=== PATIENT | female | born 1955 | race Caucasian/White ===

== ENCOUNTER → 2016-04-18 | Outpatient (CLI) | payer BC ==
--- NOTE | 2016-04-19 09:37 | MM ---
Reason for exam: screening (asymptomatic). Last mammogram was performed 1 year ago. History: Patient is postmenopausal. Family history of breast cancer in paternal aunt. Benign US LT VAD breast biopsy of the left breast, February 16, 2011. Benign left breast aspiration of the left breast, February 16, 2011. Physical Findings: A clinical breast exam by your physician is recommended on an annual basis and results should be correlated with mammographic findings. MG Screening Mammo w CAD Bilateral CC and MLO view(s) were taken. Prior study comparison: April 05, 2015, bilateral MG screening mammo w CAD. August 13, 2013, right breast MG diagnostic mammo RT w CAD. The breast tissue is heterogeneously dense. This may lower the sensitivity of mammography. Previous mammotome biopsy in the left breast. There is chronic nodularity bilaterally. No significant changes when compared with prior studies. ASSESSMENT: Benign, BI-RAD 2 RECOMMENDATION: Routine screening mammogram of both breasts in 1 year.
== END | disposition home or self-care (01) ==
LOC: RADMAMWWP 07:39
PROVIDERS: ATTEND Family Medicine
DX: Z12.31 Encounter for screening mammogram for malignant neoplasm of breast (principal)

== ENCOUNTER → 2017-05-30 | Outpatient (CLI) | payer BC ==
--- NOTE | 2017-05-31 11:04 | MM ---
Reason for exam: screening (asymptomatic). Last mammogram was performed 1 year and 1 month ago. History: Patient is postmenopausal. Family history of breast cancer in paternal aunt. Benign US LT VAD breast biopsy of the left breast, February 16, 2011. Benign left breast aspiration of the left breast, February 16, 2011. Physical Findings: A clinical breast exam by your physician is recommended on an annual basis and results should be correlated with mammographic findings. MG Screening Mammo w CAD Bilateral CC and MLO view(s) were taken. Prior study comparison: April 18, 2016, bilateral MG screening mammo w CAD. April 05, 2015, bilateral MG screening mammo w CAD. The breast tissue is heterogeneously dense. This may lower the sensitivity of mammography. Finding: There are typically benign multiple round oval circumscribed masses in both breasts most compatible with waxing and waning cysts mammographically. No suspicious abnormality. Left biopsy marker noted. ASSESSMENT: Benign, BI-RAD 2 RECOMMENDATION: Routine screening mammogram of both breasts in 1 year.
== END | disposition home or self-care (01) ==
LOC: RADMAMWWP 15:17
PROVIDERS: ATTEND Family Medicine
DX: Z12.31 Encounter for screening mammogram for malignant neoplasm of breast (principal)
CPT/HCPCS: 77067

== ENCOUNTER → 2018-06-11 | Outpatient (CLI) | payer BC ==
--- NOTE | 2018-06-12 10:57 | MM ---
Reason for exam: screening (asymptomatic). Last mammogram was performed 1 year ago. History: Patient is postmenopausal. Family history of breast cancer in paternal aunt. Benign US LT VAD breast biopsy of the left breast, February 16, 2011. Benign left breast aspiration of the left breast, February 16, 2011. Physical Findings: A clinical breast exam by your physician is recommended on an annual basis and results should be correlated with mammographic findings. MG Screening Mammo w CAD Bilateral CC and MLO view(s) were taken. Prior study comparison: May 30, 2017, bilateral MG screening mammo w CAD. April 18, 2016, bilateral MG screening mammo w CAD. The breast tissue is heterogeneously dense. This may lower the sensitivity of mammography. There are benign appearing round oval circumscribed masses waxing and waning over time most mammographically compatible with cysts. Bilateral biopsy markers. ASSESSMENT: Benign, BI-RAD 2 RECOMMENDATION: Routine screening mammogram of both breasts in 1 year.
== END ==
LOC: RADMAMWWP 11:01
PROVIDERS: ATTEND Family Medicine
DX: Z12.31 Encounter for screening mammogram for malignant neoplasm of breast (principal)
CPT/HCPCS: 77067

== ENCOUNTER → 2019-10-15 | Outpatient (CLI) | payer BC ==
--- NOTE | 2019-10-16 09:02 | MM ---
Reason for exam: screening (asymptomatic). Last mammogram was performed 1 year and 4 months ago. History: Patient is postmenopausal. Family history of breast cancer in paternal aunt. Benign US LT VAD breast biopsy of the left breast, February 16, 2011. Benign left breast aspiration of the left breast, February 16, 2011. Physical Findings: A clinical breast exam by your physician is recommended on an annual basis and results should be correlated with mammographic findings. MG Screening Mammo w CAD Bilateral CC and MLO view(s) were taken. Prior study comparison: June 11, 2018, bilateral MG screening mammo w CAD. May 30, 2017, bilateral MG screening mammo w CAD. The breast tissue is heterogeneously dense. This may lower the sensitivity of mammography. Finding: There is a stable 8 mm lobulated mass in the upper outer quadrant of the right breast with internal calcifications. Previous mammotome biopsy in the left breast. There is a chronic nodularity bilaterally. No significant changes in finding since June 11, 2018 and May 30, 2017. ASSESSMENT: Benign, BI-RAD 2 RECOMMENDATION: Routine screening mammogram of both breasts in 1 year.
== END | disposition home or self-care (01) ==
LOC: RADMAMWWP 09:18
PROVIDERS: ATTEND Family Medicine
DX: Z12.31 Encounter for screening mammogram for malignant neoplasm of breast (principal)
CPT/HCPCS: 77067

== ENCOUNTER → 2020-10-18 | Outpatient (CLI) | payer BC ==
--- NOTE | 2020-10-18 16:10 | EST ---
EXERCISE STRESS AGE: 64 SEX: F HT: 5'1" WT: 160 lbs. PROTOCOL: Twan STAGE: 2 DURATION OF EXERCISE: 6:00 HEART RATE REST: 82 BLOOD PRESSURE REST: 131/86 MAXIMUM HEART RATE ACHIEVED: 145 MAXIMUM BLOOD PRESSURE: 183/88 85% MPHR: 134 100% MPHR: 158 METS: 7.1 INDICATIONS: Chest pain. CLINICAL INFORMATION: Abnormal ECG. STRESS DATA: Heart rate 82, pressure is 131/86 mmHg. Baseline EKG showed sinus mechanism. The patient exercised on the treadmill according to Twan protocol for a total of 6 minutes and achieved 7.1 METS. Max heart rate was 138, which is about 92% of maximum predicted heart rate. Maximum blood pressure was 145/112 mmHg. Clinically, the patient did not have any symptoms. The EKG did not show any significant ST or T-wave abnormalities concerning for ischemia. CONCLUSION: 1. Good exercise tolerance. 2. Normal EKG in response to exercise. MMODL / IJN: [id number] /
== END | disposition home or self-care (01) ==
LOC: RADNMMAIN 08:23
PROVIDERS: ATTEND Family Medicine
DX: R07.9 Chest pain, unspecified (principal)
CPT/HCPCS: 93017

== ENCOUNTER → 2020-10-21 | Outpatient (CLI) | payer BC ==
--- NOTE | 2020-10-21 11:50 | BD ---
EXAMINATION TYPE: Axial Bone Density DATE OF EXAM: 10/21/2020 COMPARISON: NONE CLINICAL HISTORY: Height: 62 Weight: 160.9 FRAX RISK QUESTIONS: Alcohol (3 or more units per day): no Family History (Parent hip fracture): no Glucocorticoids (More than 3mos): no (Ex: prednisone, prednisolone, methylprednisolone, dexamethasone, and hydrocortisone). History of Fracture in Adulthood: no Secondary Osteoporosis: 1. Type 1 Diabetes: no 2. Hyperthyroidism: no 3. Menopause before 45: no 4. Malnutrition: no 5. Chronic liver disease: no Rheumatoid Arthritis: no Current Tobacco Use: no RISK FACTORS HISTORY OF: Surgery to Spine/Hip(right/left)/Wrist (right/left): no Family History of Osteoporosis: no Active: yes Diet low in dairy products/other sources of calcium: no Postmenopausal woman: age 55 Lost more than 2 inches in height since high school: no MEDICATIONS: Thyroid Medications: levothyroxine How Lon years Additional History: EXAM MEASUREMENTS: Bone mineral densitometry was performed using the [employer] System. Bone mineral density as measured about the Lumbar spine is: ----- L1-L4(G/cm2): 1.062 T Score Values are as follows: ----- L2: 0.9 ----- L3: -0.5 ----- L4: -1.3 ----- L1-L4: -1.0 Bone mineral density : baseline Bone mineral density about the R hip (g/cm2): 0.907 Bone mineral density about the L hip (g/cm2): 0.859 T Score values are as follows: -----R Neck: -0.9 -----L Neck: -1.3 -----R Total: -0.7 -----L Total: -0.9 Bone mineral density : baseline IMPRESSION: No evidence for osteoporosis or osteopenia. NOTE: T-SCORE=SD OF THE YOUNG ADULT MEAN.
--- NOTE | 2020-10-25 10:10 | MM ---
Reason for exam: screening (asymptomatic). Last mammogram was performed 1 year ago. History: Patient is postmenopausal. Family history of breast cancer in paternal aunt. Benign US LT VAD breast biopsy of the left breast, February 16, 2011. Benign left breast aspiration of the left breast, February 16, 2011. Physical Findings: A clinical breast exam by your physician is recommended on an annual basis and results should be correlated with mammographic findings. MG 3D Screening Mammo W/Cad Bilateral CC and MLO view(s) were taken. Prior study comparison: October 15, 2019, bilateral MG screening mammo w CAD. June 11, 2018, bilateral MG screening mammo w CAD. There are scattered fibroglandular densities. There is chronic nodularity bilaterally with microclips from prior biopsies. Lateral left CC asymmetric density unchanged from 2019. Medial nodular asymmetric density is more defined right CC view, additional evaluation recommended. ASSESSMENT: Incomplete: need additional imaging evaluation, BI-RAD 0 RECOMMENDATION: Special view mammogram of the right breast. (3D) If lesion persists on supplemental views, image directed ultrasound is recommended. [facility] will attempt to contact patient to return for supplemental views and ultrasound if indicated.
== END | disposition home or self-care (01) ==
LOC: RADMAMWWP 07:21
PROVIDERS: ATTEND Family Medicine
DX: Z12.31 Encounter for screening mammogram for malignant neoplasm of breast (principal); Z78.0 Asymptomatic menopausal state; Z80.3 Family history of malignant neoplasm of breast
CPT/HCPCS: 77063; 77067; 77080

== ENCOUNTER → 2020-10-27 | Outpatient (CLI) | payer BC ==
--- NOTE | 2020-11-01 12:03 | MM ---
Reason for exam: additional evaluation requested from abnormal screening. Last mammogram was performed less than 1 month ago. History: Patient is postmenopausal. Family history of breast cancer in paternal aunt. Benign US LT VAD breast biopsy of the left breast, February 16, 2011. Benign left breast aspiration of the left breast, February 16, 2011. Physical Findings: Nurse did not find any significant physical abnormalities on exam. MG 3D Work Up W/Cad RT Spot compression CC and LM view(s) were taken of the right breast. Prior study comparison: October 21, 2020, bilateral MG 3d screening mammo w/cad. October 15, 2019, bilateral MG screening mammo w CAD. There is 4-5mm chronic nodularity in the right breast anterior depth inner aspect persists. These results were verbally communicated with the patient and result sheet given to the patient on 10/27/20. ASSESSMENT: Incomplete: need additional imaging evaluation, BI-RAD 0 RECOMMENDATION: Ultrasound of the right breast.
--- NOTE | 2020-11-01 12:05 | USB ---
Reason for exam: additional evaluation requested from abnormal screening. History: Patient is postmenopausal. Family history of breast cancer in paternal aunt. Benign US LT VAD breast biopsy of the left breast, February 16, 2011. Benign left breast aspiration of the left breast, February 16, 2011. US Breast Workup Limited RT Right limited breast ultrasound including focal area of concern, retroareolar and axilla demonstrates a 0.6 x 0.4 x 0.4cm round, lobular, cystic, hypoechoic to anechoic lesion at 12 o'clock, a 0.3 x 0.3 x 0.2cm oval lesion at 4 o'clock and a 1.5 x 2.8 x 1.1cm lymph node at the axilla. These results were verbally communicated with the patient and result sheet given to the patient on 10/27/20. ASSESSMENT: Probably benign, BI-RAD 3 RECOMMENDATION: Follow-up diagnostic mammogram and ultrasound of the right breast in 6 months.
== END | disposition home or self-care (01) ==
LOC: RADMAMWWP 06:59
PROVIDERS: ATTEND Family Medicine
DX: N60.01 Solitary cyst of right breast (principal); Z78.0 Asymptomatic menopausal state; Z80.3 Family history of malignant neoplasm of breast; N63.10 Unspecified lump in the right breast, unspecified quadrant
CPT/HCPCS: 77061; 77065

== ENCOUNTER 2021-01-07 19:51 | Emergency (ER) | payer BC ==
[2021-01-07 19:58] VITALS: BP 155/64; PULSE 84; RESP 16; TEMP 98.3
[2021-01-07] MEDS ORDERED: ACETAMINOPHEN TAB 500 MG TAB PO STA (20:10)
--- NOTE | 2021-01-07 20:33 | XR ---
EXAMINATION TYPE: XR hand complete RT DATE OF EXAM: 01/07/2021 COMPARISON: NONE HISTORY: Swelling TECHNIQUE: 3 views FINDINGS: I see no fracture nor dislocation. Joint spaces are normal. There is mild soft tissue swell ing on the dorsum of the metacarpals. IMPRESSION: Posterior soft tissue swelling. No fracture seen.
--- NOTE | 2021-01-07 20:43 | ED ---
General Adult HPI - General Chief complaint: Extremity Injury, Upper Stated complaint: R hand swelling Time Seen by Provider: 01/07/21 20:05 Source: patient, RN notes reviewed, old records reviewed Mode of arrival: ambulatory Limitations: no limitations - History of Present Illness Initial comments: Patient is a 65-year-old female with no significant past medical history who presents emergency Department complaining of acute onset of right hand swelling. Patient states she was cutting ingredients for her dinner when she noticed suddenly she felt a "pop" and she had some swelling on the posterior aspect of her right hand. She denies any weakness, sensory deficits. Denies any worsening the swelling. It occurred approximately one hour ago. She denies any history of bleeding disorders. She is not on blood thinners. She is no medical problems. She denies any weakness or injury. She denies hitting her hand on anything. She has no other acute complaints at this time. Patient presents because her hand is mildly uncomfortable and wants to be examined. - Related Data Allergies Allergy/AdvReac Type Severity Reaction Status Date / Time No Known Allergies Allergy Verified 01/07/21 19:57 Review of Systems ROS Statement: Those systems with pertinent positive or pertinent negative responses have been documented in the HPI. Review of Systems: CONST: Denies fever EYES: Denies blurry vision ENT: Denies nasal congestion C/V: Denies Chest pain RESP: Denies shortness of breath GI: Denies abdominal pain : Denies dysuria SKIN: Endorses right hand swelling MSK: Denies joint pain. NEURO: Denies headache ROS Other: All systems not noted in ROS Statement are negative. Past Medical History Past Medical History: No Reported History History of Any Multi-Drug Resistant Organisms: None Reported Past Surgical History: No Surgical Hx Reported Past Psychological History: No Psychological Hx Reported Smoking Status: Never smoker Past Alcohol Use History: None Reported Past Drug Use History: None Reported General Exam - General Exam Comments Initial Comments: General: Appears in no acute distress. HEAD: Normal with no signs of head trauma. EYES: EOMI ENT: Hearing grossly intact. RESPIRATORY: No increased work of breathing C/V: Peripheral pulses are 2+ and intact throughout including the radial and ulnar pulses. ABD: Abdomen nondistended. EXT: Patient is normal range of motion of the right fingers, hand, wrist without any pain. 5 out of 5 strength in the right hand. SKIN: Patient has what appears to be a hematoma over the dorsal aspect of the right hand. It is mildly tender to palpation. It is unchanged since the incident per patient. NEURO: No focal sensory strength deficits, including the right upper extremity. Limitations: no limitations Course Vital Signs 01/07/21 19:55 Temperature 98.3 F Pulse Rate 84 Respiratory 16 Rate Blood Pressure 155/64 O2 Sat by Pulse 96 Oximetry Medical Decision Making - Medical Decision Making Based on the patient's presentation and physical exam, she likely has an incidental hematoma to the dorsal aspect of the right hand. Do not believe that laboratory studies are required at this time. Patient is no history of bleeding disorders in herself or family members and patient is not on blood thinners. We will obtain an x-ray of the right hand to see if there is an incidental fracture or subluxation in the hand, however there is low suspicion. She'll be given Tylenol for pain management. She was in agreement this plan. Patient's x-ray shows soft tissue swelling but no signs of bony traumatic injury. Reevaluation, I discussed the results of the x-rays with the patient. We will provide an Nelson bandage as compression for the patient's hematoma. She can ice it and is Tylenol and Motrin at home for pain management. She was in agreement this plan. I advised that she follow-up with her primary care physician in the next few days or return to emergency department if anything worsens. She was in agreement this plan. I instructed the patient to follow up with their PCP in the next 3 days. I explained that the patient should return to the emergency department if they experience any worsening symptoms. Strict return precautions were discussed with the patient. The patient expressed understanding of these instructions. I answered all questions that the patient had. The patient was discharged home in good condition with their prescriptions and follow up information. Disposition Clinical Impression: Hematoma, Contusion of hand, right Disposition: HOME SELF-CARE Condition: Good Instructions (If sedation given, give patient instructions): Hematoma (ED) Is patient prescribed a controlled substance at d/c from ED?: No Referrals: Jose A Drummond DO [Primary Care Provider] - 1-2 days
== END 2021-01-07 20:50 | disposition home or self-care (01) ==
LOC: EC 19:51
DX: S60.221A Contusion of right hand, initial encounter (principal); X58.XXXA Exposure to other specified factors, initial encounter
CPT/HCPCS: 99283

== ENCOUNTER → 2021-05-03 | Outpatient (CLI) | payer BC ==
--- NOTE | 2021-05-03 09:41 | MM ---
Reason for exam: follow-up at short interval from prior study. Last mammogram was performed 6 months ago. History: Patient is postmenopausal. Family history of breast cancer in paternal aunt. Benign US LT VAD breast biopsy of the left breast, February 16, 2011. Benign left breast aspiration of the left breast, February 16, 2011. Physical Findings: Nurse did not find any significant physical abnormalities on exam. MG Diagnostic Mammo RT w CAD CC, MLO, and LM view(s) were taken of the right breast. Prior study comparison: October 27, 2020, right breast MG 3d work up w/cad RT. October 21, 2020, bilateral MG 3d screening mammo w/cad. The breast tissue is heterogeneously dense. This may lower the sensitivity of mammography. There is chronic nodularity in the right breast. No significant new findings when compared with previous films. These results were verbally communicated with the patient and result sheet given to the patient on 05/03/21. ASSESSMENT: Incomplete: need additional imaging evaluation, BI-RAD 0 RECOMMENDATION: Ultrasound of the right breast.
--- NOTE | 2021-05-03 09:43 | USB ---
Reason for exam: follow-up at short interval from prior study. History: Patient is postmenopausal. Family history of breast cancer in paternal aunt. Benign US LT VAD breast biopsy of the left breast, February 16, 2011. Benign left breast aspiration of the left breast, February 16, 2011. US Breast Limited RT Right limited breast ultrasound including focal area of concern, retroareolar and axilla demonstrates a 7 x 4 x 6mm oval, cystic lesion at 12 o'clock, a 5 x 3 x 5mm oval, cystic lesion at 1 o'clock, a 2 x 2 x 3mm oval lesion too small to characterize at 4 o'clock, a 4 x 2 x 2mm oval lesion too small to characterize at 4 o'clock and a 10mm oval lymph node at the axilla tail. These results were verbally communicated with the patient and result sheet given to the patient on 05/03/21. ASSESSMENT: Benign, BI-RAD 2 RECOMMENDATION: Return to routine screening mammogram schedule for both breasts. Back on schedule for September 2021.
== END | disposition home or self-care (01) ==
LOC: RADMAMWWP 08:30
PROVIDERS: ATTEND Family Medicine
DX: R92.8 Other abnormal and inconclusive findings on diagnostic imaging of breast (principal); Z78.0 Asymptomatic menopausal state; Z80.3 Family history of malignant neoplasm of breast
CPT/HCPCS: 77065

== ENCOUNTER → 2021-10-26 | Outpatient (CLI) | payer BC ==
--- NOTE | 2021-10-27 07:20 | MM ---
Reason for Exam: Screening (asymptomatic). Last mammogram was performed 1 year(s) and 1 month(s) ago. Patient History: Menarche at age 12. First Full-Term at age 23. Postmenopausal. 02/16/2011, Benign Cyst Aspiration on the left side. 02/16/2011, Benign Core Biopsy on the left side. Paternal aunt had breast cancer. Risk Values: Umu 5 year model risk: 1.8%. NCI Lifetime model risk: 7.7%. Prior Study Comparison: 10/21/2020 Bilateral Screening Mammogram, [facility]. 10/27/2020 Right Diagnostic Mammogram, [facility]. 05/03/2021 Right Diagnostic Mammogram, [facility]. Tissue Density: The breast tissue is heterogeneously dense. This may lower the sensitivity of mammography. Findings: Analyzed By CAD. Persistent small well-circumscribed masses bilaterally are stable. One large dystrophic calcification in the right breast and one biopsy clip in the left breast are all redemonstrated There is no suspicious new group of microcalcifications or new distortion in either breast. Overall Assessment: Benign, BI-RAD 2 Management: Screening Mammogram of both breasts in 1 year. One may consider bilateral ultrasound surveillance in patients with background dense tissue. Electronically signed and approved by: Gaurav Bhagat M.D.
== END | disposition home or self-care (01) ==
LOC: RADMAMWWP 09:45
PROVIDERS: ATTEND Family Medicine
DX: Z12.31 Encounter for screening mammogram for malignant neoplasm of breast (principal); Z78.0 Asymptomatic menopausal state; Z80.3 Family history of malignant neoplasm of breast
CPT/HCPCS: 77067

== ENCOUNTER → 2022-08-23 | Outpatient (CLI) | payer BC ==
--- NOTE | 2022-08-23 09:43 | XR ---
EXAMINATION TYPE: XR shoulder complete LT DATE OF EXAM: 08/23/2022 9:34 AM INDICATION: Patient age:Female; 66 years old; Reason for study: [id number] LT SHLD PAIN; COMPARISON: None TECHNIQUE: The left shoulder was examined in AP, internally rotated and scapular Y projections. FINDINGS: No evidence of acute osseous pathology, joint dislocation, or soft tissue swelling. The remaining por tions of the visualized chest are unremarkable. IMPRESSION: No acute osseous pathology.
== END | disposition home or self-care (01) ==
LOC: RADXRYALE 08:51
PROVIDERS: ATTEND Physician Assistant
DX: M25.512 Pain in left shoulder (principal)

== ENCOUNTER → 2022-10-29 | Outpatient (CLI) | payer BC ==
--- NOTE | 2022-10-29 12:01 | MM ---
Reason for Exam: Screening (asymptomatic). Last screening mammogram was performed 12 month(s) ago. Patient History: Menarche at age 12. First Full-Term at age 23. Postmenopausal. 02/16/2011, Benign Cyst Aspiration on the left side. 02/16/2011, Benign Core Biopsy on the left side. Paternal aunt had breast cancer. Risk Values: Umu 5 year model risk: 1.6%. NCI Lifetime model risk: 6.1%. Prior Study Comparison: 05/30/2017 Bilateral Screening Mammogram, [facility]. 06/11/2018 Bilateral Screening Mammogram, [facility]. 10/15/2019 Bilateral Screening Mammogram, [facility]. 10/21/2020 Bilateral Screening Mammogram, [facility]. 10/27/2020 Right Diagnostic Mammogram, [facility]. 05/03/2021 Right Diagnostic Mammogram, [facility]. 10/26/2021 Bilateral MG screening mammo w CAD, [facility]. Tissue Density: The breast tissue is heterogeneously dense. This may lower the sensitivity of mammography. Findings: Analyzed By CAD. 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 Left breast biopsy clip. There is no suspicious group of microcalcifications or new suspicious mass in either breast. Overall Assessment: Benign, BI-RAD 2 Management: Screening Mammogram of both breasts in [address] [facility] will attempt to contact patient to return for supplemental views and ultrasound if indicated. Patient should continue monthly self-breast exams. A clinical breast exam by your physician is recommended on an annual basis. This exam should not preclude additional follow-up of suspicious palpable abnormalities. Note on Umu scores and lifetime risk: 1. A Umu score greater than 3% is considered moderate risk. If this is the case, consider specialist referral to assess eligibility for a risk reducing agent. 2. If overall lifetime risk for the development of breast cancer is 20% or higher, the patient may qualify for future screening with alternating mammogram and breast MRI. Electronically signed and approved by: Parish Hines DO
== END | disposition home or self-care (01) ==
LOC: RADMAMWWP 09:42
PROVIDERS: ATTEND Family Medicine
DX: Z12.31 Encounter for screening mammogram for malignant neoplasm of breast (principal); Z78.0 Asymptomatic menopausal state; Z80.3 Family history of malignant neoplasm of breast
CPT/HCPCS: 77067

== ENCOUNTER → 2023-11-20 | Outpatient (CLI) | payer BC ==
--- NOTE | 2023-11-22 10:20 | MM ---
Reason for Exam: Screening (asymptomatic). Last screening mammogram was performed 12 month(s) ago. Patient History: Menarche at age 12. First Full-Term at age 23. Postmenopausal. 02/16/2011, Benign Cyst Aspiration on the left side. 02/16/2011, Benign Core Biopsy on the left side. Paternal aunt had breast cancer. Risk Values: Umu 5 year model risk: 1.2%. NCI Lifetime model risk: 5.0%. Prior Study Comparison: 05/03/2021 Right Diagnostic Mammogram, [facility]. 10/26/2021 Bilateral MG screening mammo w CAD, [facility]. 10/29/2022 Bilateral MG screening mammo w CAD, [facility]. Tissue Density: There are scattered areas of fibroglandular density. Findings: Analyzed By CAD. Right breast: There is no suspicious group of microcalcifications or new suspicious mass. Left breast: Enlarging 12 mm lesion left breast MLO view posterior nipple line slightly superior 6.0 cm from the nipple. On cc view this is in the lateral aspect. Overall Assessment: Incomplete: need additional imaging evaluation, BI-RAD 0 Management: Diagnostic Breast Ultrasound of the left breast. [facility] will attempt to contact patient to return for supplemental views and ultrasound if indicated. Patient should continue monthly self-breast exams. A clinical breast exam by your physician is recommended on an annual basis. This exam should not preclude additional follow-up of suspicious palpable abnormalities. Note on Umu scores and lifetime risk: 1. A Umu score greater than 3% is considered moderate risk. If this is the case, consider specialist referral to assess eligibility for a risk reducing agent. 2. If overall lifetime risk for the development of breast cancer is 20% or higher, the patient may qualify for future screening with alternating mammogram and breast MRI. Electronically signed and approved by: aPrish Hines DO
== END | disposition home or self-care (01) ==
LOC: RADMAMWWP 07:48
PROVIDERS: ATTEND Family Medicine
DX: Z12.31 Encounter for screening mammogram for malignant neoplasm of breast
CPT/HCPCS: 77067

== ENCOUNTER → 2023-11-27 | Outpatient (CLI) | payer BC ==
--- NOTE | 2023-11-27 07:50 | USB ---
Reason for Exam: Additional evaluation requested from abnormal screening. Patient History: Menarche at age 12. First Full-Term at age 23. Postmenopausal. 02/16/2011, Benign Cyst Aspiration on the left side. 02/16/2011, Benign Core Biopsy on the left side. Paternal aunt had breast cancer. Risk Values: Umu 5 year model risk: 1.2%. NCI Lifetime model risk: 5.0%. Technique: Method: Targeted. Prior Study Comparison: 10/26/2021 Bilateral MG screening mammo w CAD, [facility]. 10/29/2022 Bilateral MG screening mammo w CAD, [facility]. 11/20/2023 Bilateral MG screening mammo w CAD, [facility]. Findings: The upper outer quadrant of the left breast, the axilla of the left breast and the retroareolar of the left breast were scanned. Technique utilized:US breast workup limited LT Image; Ultrasound imaging of: Area of concern, retroareolar region and axilla. Probable minimally complicated cysts throughout the exam including 2:00 6 cm from nipple measuring 11 x 10 x 6 mm and posterior nipple measuring 8 x 6 x 6 mm. Overall Assessment: Probably benign, BI-RAD 3 Management: Diagnostic Breast Ultrasound of the left breast in 6 months. A clinical breast exam by your physician is recommended on an annual basis and results should be correlated with mammographic findings. This exam should not preclude additional follow-up of suspicious palpable abnormalities. Results were given to the patient verbally at the time of exam. Electronically signed and approved by: Parish Hines DO
== END | disposition home or self-care (01) ==
LOC: RADUSWWP 07:17
PROVIDERS: ATTEND Family Medicine
DX: R92.8 Other abnormal and inconclusive findings on diagnostic imaging of breast

== ENCOUNTER → 2024-05-29 | Outpatient (CLI) | payer MEDICARE ==
--- NOTE | 2024-05-29 15:23 | USB ---
Reason for Exam: Follow-up at short interval from prior study. Patient History: Menarche at age 12. First Full-Term at age 23. Postmenopausal. 02/16/2011, Benign Cyst Aspiration on the left side. 02/16/2011, Benign Core Biopsy on the left side. Paternal aunt had breast cancer. Risk Values: Umu 5 year model risk: 1.3%. NCI Lifetime model risk: 4.8%. Technique: Method: Targeted. Prior Study Comparison: 10/26/2021 Bilateral MG screening mammo w CAD, [facility]. 10/29/2022 Bilateral MG screening mammo w CAD, [facility]. 11/20/2023 Bilateral MG screening mammo w CAD, [facility]. Findings: The lateral section of the breast of the left breast, the axilla of the left breast and the retroareolar of the left breast were scanned. Targeted ultrasound left breast 2:00, 9:00, subareolar region, and axilla. At 2:00, 6 and is from the nipple, there is a bilobed hypoechoic area measuring 9 mm. Posterior true transmission is present. Previously measured 1.1 cm. Stability or decreasing size favors a benign etiology. At 9:00, near the nipple, there is a hypoechoic mildly lobulated lesion measuring 7 x 6 x 6 mm versus 8 x 6 x 6 mm, previously. Stability favors a benign etiology. In addition, this may correspond to the nodule with a coil clip within on mammogram. Unclear if this corresponds to the lesion previously biopsied in 2010. Continue to follow for the time being. No other solid or cystic lesion or axillary adenopathy. Overall Assessment: Probably benign, BI-RAD 3 Management: Diagnostic Mammogram of both breasts in 6 months. Diagnostic Breast Ultrasound of the left breast in 6 months. Which should be a total one-year follow-up left breast and annual exam of the right breast. A clinical breast exam by your physician is recommended on an annual basis and results should be correlated with mammographic findings. This exam should not preclude additional follow-up of suspicious palpable abnormalities. Results were given to the patient verbally at the time of exam. [facility], , 05/29/2024 3:20 PM. Electronically signed and approved by: Magdy Briggs M.D. Radiologist
== END | disposition home or self-care (01) ==
LOC: RADUSWWP 14:51
PROVIDERS: ATTEND Family Medicine
DX: R92.8 Other abnormal and inconclusive findings on diagnostic imaging of breast (principal); Z78.0 Asymptomatic menopausal state; Z80.3 Family history of malignant neoplasm of breast

== ENCOUNTER 2024-10-23 09:46 | Day surgery (SDC) | payer MEDICARE ==
[2024-10-19 10:35] VITALS: BMI 32.1
[2024-10-23] MEDS ORDERED: fentaNYL (PF) 50 MCG/ML 2 ML AMP IVP PRN (09:57)
[2024-10-23] MEDS ORDERED: HYDROmorphone 0.5 MG/0.5 ML SYRINGE IVP PRN (09:57)
[2024-10-23] MEDS ORDERED: LIDOCAINE 1% (10MG/ML) FOR IV START INTRADERMA PRN (09:57)
[2024-10-23 10:16] VITALS: TEMP 97.7
[2024-10-23] MEDS: ACETAMINOPHEN TAB 500 MG TAB PO ONE (10:53)
[2024-10-23] MEDS: LACTATED RINGERS 1,000 ML IV SCH (10:54)
[2024-10-23] MEDS: FAMOTIDINE 20 MG/2 ML VIAL IVP ONE (10:56)
[2024-10-23] MEDS: ONDANSETRON 4 MG/2 ML VIAL IVP ONE (10:56)
[2024-10-23] MEDS: DEXAMETHASONE SOD PHOSPHATE 4 MG/ML 1 ML VIAL IV ONE (10:56)
[2024-10-23] MEDS: IV FLUID CONTINUATION 1,000 ML IV ONE (11:12)
[2024-10-23] MEDS: MIDAZOLAM 2 MG/2 ML VIAL IV PRN (11:15)
[2024-10-23] MEDS: HEPARIN SODIUM,PORCINE 5,000 UNIT/ML 1 ML VIAL SQ ONE (11:28)
--- NOTE | 2024-10-23 11:35 | P.ANPRN ---
Procedure Note - Anesthesia - Nerve Block Performed Bilateral Erector Spinae Single Time Out Performed: Yes Date of Procedure: 10/23/24 (8021) Procedure Start Time: 11:15 Procedure Stop Time: 11:20 Location of Patient: PreOp Indication: Acute Post-Operative Pain, Analgesia, Requested by Surgeon Sedation Type: Sedate with meaningful contact maintained Preparation: Sterile Prep Position: Prone Catheter: None Needle Types: Pajunk Needle Gauge: 21 Ultrasound used to visualize needle placement: Yes Ultrasound used to observe medication spread: Yes Injectate: 0.5% Ropivacaine (see comment for volume) ([id number], Needle level T11-- Each side) Blood Aspirated: No Pain Paresthesia on Injection Noted: No Resistance on Injection: Normal Image Stored and Saved: Yes Events: Uneventful and Well Tolerated
[2024-10-23] MEDS ORDERED: DEXAMETHASONE SOD PHOSPHATE 4 MG/ML 1 ML VIAL ONE (12:05)
[2024-10-23] MEDS ORDERED: ROCURONIUM 10 MG/ML (5 ML VIAL) IV ONE (12:05)
[2024-10-23] MEDS ORDERED: KETOROLAC 15 MG/ML 1 ML VIAL ONE (12:05)
[2024-10-23] MEDS ORDERED: fentaNYL (PF) 50 MCG/ML 2 ML AMP ONE (12:05)
[2024-10-23] MEDS ORDERED: ROPIVACAINE 5 MG/ML 30 ML VIAL ONE (12:05)
[2024-10-23] MEDS ORDERED: PHENYLEPHRINE 10 MG/ML VIAL ONE (12:05)
[2024-10-23] MEDS ORDERED: SUGAMMADEX SODIUM 100 MG/ML SYR IV ONE (12:05)
[2024-10-23] MEDS ORDERED: MIDAZOLAM 2 MG/2 ML VIAL ONE (12:05)
[2024-10-23] MEDS ORDERED: PROPOFOL 10 MG/ML 20 ML VIAL IV ONE (12:05)
[2024-10-23] MEDS: BUPIVACAINE (PF) 0.25% 30 ML VIAL SQ ONE (12:27)
--- NOTE | 2024-10-23 13:04 | P.OP ---
Date of Procedure: 10/23/24 Procedure(s) Performed: PREOPERATIVE DIAGNOSIS: Incarcerated umbilical hernia POSTOPERATIVE DIAGNOSIS: Same PROCEDURE: Open repair of incarcerated umbilical hernia with mesh SURGEON: Dr. Jacinto ANESTHESIA: General EBL: 10 cc OPERATIVE PROCEDURE DETAILS: The patient was placed in the operating table in the supine position. A left sided periumbilical incision was made using the scalpel. The subcutaneous tissues were dissected bluntly and with cautery. The hernia sac was identified. The umbilical attachments to the fascia were divided using electrocautery. The hernia sac was partially excised. The defect in the fascia measured 1.5 x 0.8 cm. The fat overlying the fascia was dissected. No additional defects were seen. The preperitoneal space was then dissected using blunt dissection and electrocautery. The 4.3 cm ventral ex mesh was placed beneath the fascia and sutured in place using trans-fascial 0 Ethibond sutures. The defect was closed using interrupted vest over pants 0 Ethibond mattress sutures. The subcutaneous tissues were reapproximated using inverted 2-0 & 3-0 Vicryl sutures. The umbilicus was tacked back down to the fascia using a 2-0 Vicryl suture. The skin was closed using 4-0 Monocryl sutures. Skin glue and sterile dressings were then applied. HERNIA CHARACTERISTICS: Length: 0.8 cm Width: 1.5 cm Type: Incarcerated umbilical TYPE OF MESH USED: 4.3 cm Ventralex LOCATION OF MESH: Sublay, extraperitoneal FIXATION: 0 Ethibond PREOPERATIVE DISCUSSION ON SMOKING CESSASTION: Yes PREOPERATIVE DISCUSSION ON MORBID OBESITY: Yes PREOPERATIVE DISCUSSION ON APPROPRIATE USE OF NARCOTIC USE: Yes PREOPERATIVE EDUCATION: Multi Modal, Smoking Cessation and Weight Loss with BMI over 35. DISPOSITION: Stable to recovery room
[2024-10-23 13:49] VITALS: RESP 16
[2024-10-23 14:45] VITALS: BP 123/66; PULSE 76
== END 2024-10-23 15:11 | disposition home or self-care (01) ==
LOC: OR 09:46
PROVIDERS: ATTEND Surgery
DX: K42.0 Umbilical hernia with obstruction, without gangrene (principal); G89.18 Other acute postprocedural pain
CPT/HCPCS: 64468; 49592; C1781; J2250; J1644; J1100; J0690; J2405; J3010; J2795; J1885; J2704; J2371; J0665